=== PATIENT | female | born 1975 | race Caucasian/White ===

== ENCOUNTER 2017-06-12 14:41 | Emergency (ER) | payer OTHER, MEDICAID ==
[~2017-06-12] VITALS: Ht 167.6 cm; Wt 60.2 kg
[~2017-06-12 14:41] MED LIST: DESYREL 50MG50 MG PO; LEVAQUIN 250MG250 MG PO; LORTAB 5/500 501 TAB PO; MAGIC MOUTHWASH1 M1 PO; NO HOME MEDICATIONS; NORCO 325 MG-51 TAB PO; PERCOCET 5/321 UDTAB PO; PHENERGAN 25 TA25 MG PO; PHENERGAN W/CO120 ML PO; TAMIFLU 75MG75 MG PO; TOPAMAX 100MG100 M1 PO; XANAX 0.5MG0.5 MG PO; ZOLOFT 100MG100 MG PO
[2017-06-12 14:44] VITALS: BP 140/87; TEMP 97.3
[2017-06-12] MEDS ORDERED: TYLENOL 500MG500 MG PO (15:23)
[2017-06-12 16:25] VITALS: PULSE 76
== END 2017-06-12 16:26 | disposition home or self-care (01) ==
LOC: COL.ER 14:41
DX: S63.601A Unspecified sprain of right thumb, initial encounter (principal); Z90.89 Acquired absence of other organs; F17.210 Nicotine dependence, cigarettes, uncomplicated; W19.XXXA Unspecified fall, initial encounter